=== PATIENT | male | born 1995 | race Caucasian/White ===

== ENCOUNTER 2021-07-22 08:09 | Emergency (ER) | payer OTHER, SELFPAY ==
--- NOTE | 2021-07-22 08:13 | ED.SKABFB ---
HPI - Skin/Abscess/Foreign Bdy General Chief complaint: Skin/Abscess/Foreign Body Stated complaint: Insect Bite Time Seen by Provider: 07/22/21 08:42 Source: patient and RN notes reviewed Mode of arrival: ambulatory Limitations: no limitations History of Present Illness complaint: rash Related Data Allergies Allergy/AdvReac Type Severity Reaction Status Date / Time No Known Allergies Allergy Verified 07/22/21 08:30 Review of Systems Review of Systems: CONSTITUTIONAL: Denies malaise, chills, sweats, or fever. EYES: Denies redness, or discharge. ENT: Denies rhinorrhea, congestion, swollen lips, swollen tongue CARDIOVASCULAR: Denies chest pain, palpitations, or edema. RESPIRATORY: Denies cough or dyspnea. GASTROINTESTINAL: Denies abdominal pain, nausea, vomiting SKIN: Reports rash MUSCULOSKELETAL: Denies joint painor myalgia. NEUROLOGIC: Denies headache. All systems reviewed & are unremarkable except as noted in HPI and below PMFSH Comments At time of signature, agree with nursing past medical, surgical, social and family history. There is no relevant family history pertinent to the presenting complaint Exam Narrative: GENERAL: Well-appearing, well-nourished, and in no acute distress. HEAD: Normocephalic, atraumatic. EYES: PERRLA, conjunctivae clear, and EOMI. ENT: Mucous membranes moist. Oropharynx without edema, erythema or lesions. NECK: Supple. No lymphadenopathy CHEST: Clear to auscultation. No respiratory distress. HEART: Regular rate and rhythm. SKIN: Warm, dry. Patches of erythema and edema NEURO: Alert and oriented x3. PSYCH: Normal mood and affect Course Course Emergency Course: Patient is aware of diagnosis, understands and agrees to treatment plan. Anticipatory guidance given. Patient agrees to follow-up as directed and is aware of reasons to seek care at the emergency department. Portions of this record may have been created with voice recognition software Level of Care: Express Care Visit Vital Signs Vital signs: Reviewed. MDM - Skin/Abscess/Foreign Bdy MDM Narrative Medical decision making narrative: Does not appear at this time to be erythema multiforme, bullous, SJS, TEN; no evidence at this time to suggest RMSF, endocarditis or Lyme disease; patient looks well, nontoxic and is tolerating oral intake; no neurologic signs or symptoms; no headache, photophobia or neck pain; afebrile; appropriate for initial outpatient treatment; discussed the importance of follow-up, patient agrees; question, viral exanthema, contact dermatitis, allergic dermatitis, eczema, urticaria, [ xx ]. No soft palate or uvula edema, no tongue, lip edema or other mucosal involvement, no respiratory compromise, no stridor, no wheezing, no wheezing, no history of syncope, no hypotension, no nausea, vomiting, or diarrhea. Instructed patient to go to nearest ER immediately for any worsening symptoms including but not limited to: fever, spreading rash, pain, sore throat, headache, dizziness, chest pain, trouble breathing, or any symptoms concerning to the patient. Critical Care Time Critical Care Time Critical Care Time: No Discharge Plan Discharge Clinical Impression: Infected insect bite of back Patient Disposition: Home, Self-Care Condition: Stable Instructions: Antibiotic Form, Cellulitis (ED) Additional Instructions: Please follow up with your Primary Care Doctor within 48-72 hours - call for an appointment. Rest and elevate affected area; apply moist heat 3-4 times daily for 10-15 minutes. Take Motrin 600mg every 8 hours with food for pain. Please take Antibiotics as directed. If your symptoms or not improving or you notice drainage return for reevaluation. If you experience any worsening redness, swelling, streaking (red lines), fever or chills please go to the ER Prescriptions: New cephalexin 500 mg capsule 500 mg PO QID 10 Days Qty: 40 0RF Follow-up/Referrals: UNKNOWN,DOCTOR [Non-Staf
[2021-07-22 08:26] VITALS: BP 108/67; PULSE 82; RESP 18; TEMP 37.1; O2SAT 98
== END 2021-07-22 09:05 | disposition home or self-care (01) ==
PROVIDERS: Emergency Provider Nurse Practitioner
DX: L08.9 Local infection of the skin and subcutaneous tissue, unspecified (principal); S30.860A Insect bite (nonvenomous) of lower back and pelvis, initial encounter; W57.XXXA Bitten or stung by nonvenomous insect and other nonvenomous arthropods, initial encounter
CPT/HCPCS: 99213; G0463

== ENCOUNTER 2021-09-29 13:00 | Emergency (ER) | payer OTHER, SELFPAY ==
--- NOTE | 2021-09-29 13:02 | ED.URI ---
HPI - URI/Sore Throat General Chief Complaint: Upper Respiratory Infection Stated Complaint: chest congest sore throat headache Time Seen by Provider: 09/29/21 13:02 Source: patient Mode of arrival: ambulatory Limitations: no limitations History of Present Illness HPI Narrative: Mr. Morton is a 26-year-old male patient presenting to the clinic today with complaints of chest congestion, sore throat, and headache x4 days. No known exposure to anybody with COVID. He reports he has had some chills He reports and possible low-grade temperature as well. Related Data Allergies Allergy/AdvReac Type Severity Reaction Status Date / Time No Known Allergies Allergy Verified 09/29/21 13:11 Review of Systems Review of Systems: Pertinent positives per HPI. Patient denies any fever, chills, rash, visual changes, dizziness, shortness of breath, chest pain, palpitations, nausea, vomiting, diarrhea, constipation, abdominal pain, or any urinary issues. PMFSH Comments At the time of my signature, I reviewed and agree with the nursing past medical, surgical, social, and family history. There is no relevant family history pertinent to the patient complaint. Exam Narrative: General: Well-developed,obese, in no apparent distress Head: Normocephalic, atraumatic Eyes: Pupils equally round and reactive to light bilaterally, EOM intact, sclera and conjunctive clear, no discharge, lids normal Ears: TMs intact and clear, ear canals clear, no drainage, grossly hearing normal. Nose: Nares patent, clear nasal discharge, mild inflammation, no sinus tenderness. Mouth: Oropharynx without lesions or masses, good dentition, MMM. Oropharynx red Neck: Supple, trachea midline, no enlargement of anterior or posterior cervical nodes, no thyroid masses or goiter palpable. Cardio: Regular rate and rhythm, s1 and s2 normal, no murmur appreciated. Resp: Clear to auscultation bilaterally anteriorly and posteriorly, no rhonchi, rales, wheezing or rubs Course Course Emergency Course: Portions of this record may have been created with voice recognition software. Level of Care: Express Care Visit Vital Signs Vital signs: Vital Signs Temperature 36.6 C 09/29/21 13:04 Pulse Rate 82 09/29/21 13:04 Respiratory Rate 16 09/29/21 13:04 Blood Pressure 112/58 L 09/29/21 13:04 Pulse Oximetry 98 09/29/21 13:04 Oxygen Delivery Room Air 09/29/21 13:04 Temperature 36.6 C 09/29/21 13:12 Pulse Rate 82 09/29/21 13:12 Respiratory Rate 16 09/29/21 13:12 Blood Pressure 112/58 L 09/29/21 13:12 Pulse Oximetry 98 09/29/21 13:12 Oxygen Delivery Room Air 09/29/21 13:12 Vital signs reviewed MDM - URI/Sore Throat MDM Narrative Medical decision making narrative: At the time of visit patient is resting comfortably on the exam table. COVID testing was completed and was positive in the clinic. Supportive measures were discussed with the patient he voiced understanding of discharge instruction. Prescription for Paxlovid sent to the pharmacy for the patient. Differential Diagnosis Differential diagnosis: Likely upper respiratory infection, sinusitis, viral infection, bronchitis, influenza, pharyngitis and other (COVID) Lab Data Labs: Lab Results 09/29/21 Range/Units 13:06 POC SARS CoV-2 Ag Positive (Negative) Discharge Plan Discharge Clinical Impression: COVID-19 Patient Disposition: Home, Self-Care Condition: Stable Instructions: Antibiotic Form, How To Wash Your Hands (ED), Droplet Precautions (ED), COVID-19 (Coronavirus Disease 2019) (ED), How to Recover from COVID-19 at Home (ED) Additional Instructions: Covid testing positive in the clinic today. Take prescription medications only as prescribed-paxlovid Increase fluids and stay well hydrated Tylenol/motrin for pain/fever Flonase and OTC antihistamines as directed Vicks vapor rub to open sinuses Sinus rinses for congestion Snehal smith
[2021-09-29 13:04] VITALS: BP 112/58; PULSE 82; RESP 16; TEMP 36.6; O2SAT 98
[2021-09-29 13:12] VITALS: BP 112/58; PULSE 82; RESP 16; TEMP 36.6; O2SAT 98
== END 2021-09-29 13:23 | disposition home or self-care (01) ==
PROVIDERS: Emergency Provider Nurse Practitioner Family
DX: U07.1 COVID-19 (principal)
CPT/HCPCS: 87426; 99213; C9803; G0463

== ENCOUNTER 2021-10-09 08:04 | Emergency (ER) | payer OTHER, SELFPAY ==
--- NOTE | ~2021-10-09 | XR_ITS ---
EXAMINATION: XR chest 2V DATE: 10/09/2021 08:36 INDICATION: Cough TECHNIQUE: PA and lateral views of the chest are obtained. COMPARISON: None available FINDINGS: There are mild perihilar and upper lobe airspace opacities. No pleural effusion or pneumoth orax. The cardiomediastinal silhouette is normal. The visualized bones and soft tissues are unremarka ble. IMPRESSION: 1. Mild perihilar and upper lobe airspace opacities, likely pneumonia. Reviewed, dictated and finalized at location A.
[2021-10-09 08:10] VITALS: BP 131/74; PULSE 98; RESP 18; TEMP 37.2; O2SAT 99
--- NOTE | 2021-10-09 08:36 | ED.GENADULT ---
HPI - General Adult General Chief complaint: Upper Respiratory Infection Stated complaint: Fever Source: patient Mode of arrival: ambulatory Limitations: no limitations History of Present Illness HPI narrative: Patient presents for evaluation of sick symptoms. He was seen here on 09/29/2021 was diagnosed with COVID. He was given a prescription for Paxlovid. He started the medication and felt better after taking it. He continued to have a cough. Last night he developed fever, chills, body aches, headache and burning sensation in his ears. He took tylenol for his symptoms. Temperature this morning was 102.1. He did not receive COVID vaccination. He has a mild sore throat and developed nausea during coughing episodes last night. He denies nausea otherwise. No vomiting or diarrhea. Related Data Allergies Allergy/AdvReac Type Severity Reaction Status Date / Time No Known Allergies Allergy Verified 10/09/21 08:25 Review of Systems Review of Systems: CONSTITUTIONAL: Reports fever, chills, fatigue EYES: Denies visual changes, redness, or discharge. ENT: Denies rhinorrhea, congestion, sore throat, or otalgia. CARDIOVASCULAR: Denies chest pain, palpitations, or edema. RESPIRATORY: Reports cough. Denies dyspnea. GASTROINTESTINAL: Denies abdominal pain, nausea, vomiting, or diarrhea. GENITOURINARY: Denies dysuria or hematuria. SKIN: Denies rash or itching. MUSCULOSKELETAL: Reports generalized body aches NEUROLOGIC: Reports headache. Denies numbness, dizziness, or weakness. PSYCHIATRIC: Denies anxiety or depression. [facility] Past Medical History Medical History (Updated 10/09/21 @ 10:02 by KAREN Culp, ) COVID Surgical History Surgical History No pertinent past surgical history Family History Family History Mother Diabetes mellitus Social History Social History (Updated 10/09/21 @ 10:09 by KAREN Culp, ) Smoking status: Current some day smoker Tobacco type: e-cigarettes/vaping Alcohol intake: current Alcohol use details: social Substance use: never Living arrangements: with family Gender identity (if verbalized by the patient): Male Spiritual care concerns: No Exam Narrative: GENERAL: Well-appearing, well-nourished, and in no acute distress. HEAD: Normocephalic, atraumatic. EYES: PERRLA and EOMI. ENT: Nares clear, no rhinorrhea or epistaxis. Mucous membranes moist. Oropharynx without tonsillar hypertrophy exudate or other lesions. Bilateral TMs pearly ramesh nonbulging NECK: Supple. No adenopathy or masses. No carotid bruits or JVD CHEST: Clear to auscultation. Cough present on exam. No respiratory distress. No wheezes rales or rhonchi HEART: Regular rate and rhythm. No murmur heard. Normal peripheral pulses. ABDOMEN: Soft, nontender, nondistended, normal active bowel sounds. EXTREMITIES: Normal range of motion. No edema. SKIN: Warm, dry, no rash. NEURO: No focal deficits. Alert and oriented x3. PSYCH: Normal mood and affect. Course Course Emergency Course: This is a 26-year-old male who presented for evaluation of sick symptoms. His symptoms seem consistent with rebound COVID. CXR was performed and showed evidence of pneumonia. ? viral vs bacterial. Will treat with augmentin and azithromycin. He should follow up outpatient for further evaluation and treatment and return for worsening symptoms. Pt in agreement with plan of care. Level of Care: Express Care Visit Vital Signs Vital signs: Vital Signs Temperature 37.2 C 10/09/21 08:10 Pulse Rate 98 10/09/21 08:10 Respiratory Rate 18 10/09/21 08:10 Blood Pressure 131/74 10/09/21 08:10 Pulse Oximetry 99 10/09/21 08:10 Oxygen Delivery Room Air 10/09/21 08:10 Temperature 37.2 C 10/09/21 08:10 Pulse Rate 98 10/09/21 08:10 Respiratory Rate 18 10/09/21 08:1
== END 2021-10-09 09:07 | disposition home or self-care (01) ==
PROVIDERS: Emergency Provider Nurse Practitioner
DX: J18.9 Pneumonia, unspecified organism (principal); U07.1 COVID-19; F17.290 Nicotine dependence, other tobacco product, uncomplicated
CPT/HCPCS: 71046; 99213; G0463

== ENCOUNTER 2021-11-07 10:35 | Emergency (ER) | payer OTHER, SELFPAY ==
[2021-11-07 10:38] VITALS: BP 128/73; PULSE 89; RESP 14; TEMP 36.4; O2SAT 100
--- NOTE | 2021-11-07 10:38 | ED.SKABFB ---
HPI - Skin/Abscess/Foreign Bdy General Chief complaint: Skin/Abscess/Foreign Body Stated complaint: poison elida or sumac all over Time Seen by Provider: 11/07/21 10:39 Source: patient and RN notes reviewed History of Present Illness HPI narrative: Patient is a 26-year-old male who presents the urgent care with complaints of poison elida to his face, feet and groin area. Patient states that started 2 days ago and he has been putting alcohol on the areas to try to dry it out. Patient not taking anything [id number] for his symptoms. Denies of any difficulty swallowing or vision changes. No other acute complaints. No acute distress noted. Patient aware of the plan of care. Some parts of this dictation were generated by voice recognition software and may contain typographical and/or grammatical inaccuracies. Related Data Allergies Allergy/AdvReac Type Severity Reaction Status Date / Time No Known Allergies Allergy Verified 10/09/21 08:25 Review of Systems Review of Systems: CONSTITUTIONAL: Denies fever, chills, or sweats. EYES: Denies visual changes, redness, or discharge. ENT: Denies rhinorrhea, congestion, sore throat, or otalgia. CARDIOVASCULAR: Denies chest pain, palpitations, or edema. RESPIRATORY: Denies cough or dyspnea. GASTROINTESTINAL: Denies abdominal pain, nausea, vomiting, or diarrhea. GENITOURINARY: Denies dysuria or hematuria. SKIN: Reports of a red raised itchy rash to the face, groin area and feet MUSCULOSKELETAL: Denies back pain, joint pain, or myalgia. NEUROLOGIC: Denies headache, numbness, or weakness. All other systems reviewed are negative, except as documented in HPI. [facility] Past Medical History Medical History (Updated 11/07/21 @ 10:57 by KAREN Arango) COVID Surgical History Surgical History No pertinent past surgical history Family History Family History Mother Diabetes mellitus Social History Social History (Updated 10/09/21 @ 10:09 by KAREN Culp, HERRERA) Smoking status: Current some day smoker Tobacco type: e-cigarettes/vaping Alcohol intake: current Alcohol use details: social Substance use: never Gender identity (if verbalized by the patient): Male Spiritual care concerns: No Comments At the time of my signature, I reviewed and agree with the nursing past medical, surgical, social, and family history. There is no relevant family history pertinent to the patient complaint. Exam Narrative: GENERAL: This is a well-nourished, well-developed patient, in no apparent distress. HEAD: normocephalic, atraumatic. EYES: PERRL. Sclera clear/white. Vision is grossly intact. EARS: External ears normal NOSE: External nose normal with no obvious nasal discharge, nares without redness, no rhinorrhea. THROAT: Mucous membranes moist NECK: Neck supple SKIN: Erythemic raised pruritic dermatitis noted to the right side of the face, bilateral lower extremities, and lower abdomen. (Patient deferred groin exam) intact with no suspicious lesions or rash, good texture and turgor. NEURO: awake, alert, and oriented to person, place and time. There were no obvious focal neurologic abnormalities. EXTREMITIES: No clubbing, cyanosis, or edema. Course Course Level of Care: Express Care Visit Vital Signs Vital signs: Vital Signs Temperature 97.5 F L 11/07/21 10:38 Pulse Rate 89 11/07/21 10:38 Respiratory Rate 14 11/07/21 10:38 Blood Pressure 128/73 11/07/21 10:38 Pulse Oximetry 100 11/07/21 10:38 Oxygen Delivery Room Air 11/07/21 10:38 Temperature 97.5 F L 11/07/21 10:38 Pulse Rate 89 11/07/21 10:38 Respiratory Rate 14 11/07/21 10:38 Blood Pressure 128/73 11/07/21 10:38 Pulse Oximetry 100 11/07/21 10:38 Oxygen Delivery Room Air 11/07/21 10:38 Reviewed MDM - Skin/Abscess/Foreign Bdy MDM Narrative Med
[2021-11-07] MEDS: predniSONE 20 MG TABLET PO (10:58)
[2021-11-07] MEDS: predniSONE 20 MG TABLET 60 MG PO (11:02)
== END 2021-11-07 11:09 | disposition home or self-care (01) ==
PROVIDERS: Emergency Provider Nurse Practitioner Family
DX: L23.7 Allergic contact dermatitis due to plants, except food (principal); Z86.16 Personal history of COVID-19; F17.290 Nicotine dependence, other tobacco product, uncomplicated
CPT/HCPCS: 99213; G0463; J7512